=== PATIENT | male | born 1955 ===

== ENCOUNTER 2018-02-14 07:07 | Day surgery (SDC) | payer BC ==
[2018-02-12 10:58] VITALS: BMI 30.8
[2018-02-14] MEDS ORDERED: Propofol 10 mg/ml Inj (20 ML) ONE ×2 (08:23→08:44)
[2018-02-14] MEDS ORDERED: Sodium Chloride 0.9% 1,000 ML IV SCH (09:15)
[2018-02-14 11:15] VITALS: BP 128/90; PULSE 66; RESP 16; TEMP 97.4; O2SAT 98
== END 2018-02-14 10:38 | disposition home or self-care (01) ==
LOC: ENDO 07:07
PROVIDERS: ATTEND Specialist
DX: Z12.11 Encounter for screening for malignant neoplasm of colon (principal); D12.5 Benign neoplasm of sigmoid colon; K64.4 Residual hemorrhoidal skin tags; K57.30 Diverticulosis of large intestine without perforation or abscess without bleeding; K64.8 Other hemorrhoids; I10 Essential (primary) hypertension; E78.00 Pure hypercholesterolemia, unspecified; Z98.42 Cataract extraction status, left eye

== ENCOUNTER 2018-09-16 10:33 | Outpatient (CLI) | payer BC | END 2018-09-16 10:34 | disposition home or self-care (01) | LOC: RAD 10:33 ==